=== PATIENT | male | born 2000 | race Caucasian/White ===

== ENCOUNTER 2020-12-05 15:10 | Emergency (ER) | payer OTHER, SELFPAY ==
[2020-12-05 15:47] VITALS: BP 135/77; PULSE 71; RESP 14; TEMP 37.2; O2SAT 97; BMI 23.7
--- NOTE | 2020-12-05 15:49 | DI.RAD.S_ITS ---
PROCEDURE: XR HAND RT MIN 3V INDICATIONS: hand injury TECHNIQUE: 3 views of the hand(s) acquired. COMPARISON: None. FINDINGS: Bones: No fractures or dislocations. Carpal bones are normally aligned. No suspicious bony lesions. Soft tissues: No suspicious soft tissue calcifications. IMPRESSION: No fracture. No osseous lesion. If symptoms and/or clinical suspicion for pathology persists, further assessment with repeat radiographs (7-10 days) or advanced imaging (e.g. CT, MRI or bone scan) should be considered. Dictated by: Bambi Downey MD, PhD on 12/05/2020 at 16:10 Approved by: Bambi Downey MD, PhD on 12/05/2020 at 16:11
--- NOTE | 2020-12-05 18:03 | ED.UPPEXIN ---
HPI - Extremity Injury (Upper) General Chief Complaint: Extremity Injury, Upper Stated Complaint: right hand fingers crushed in trailer hitch Time Seen by Provider: 12/05/20 17:59 Source: patient Mode of arrival: Ambulatory Limitations: no limitations History of Present Illness HPI narrative: 20-year-old male nonsmoker with noncontributory medical history presents with a chief complaint of injuries to the middle and ring finger on his right hand. He was working with a heavy trailer and the tongue squished these fingers in he now has some bruising and full but painful range of motion. He has no break in the skin and denies any numbness, tingling or weakness. He is otherwise well and free of complaint. MD complaint: injury to: right and finger Onset (ago): hour(s) Other Extremity Injury: Right: fingers Other injuries: none Handedness: left Place: work Severity: mild Relieving factors: rest Exacerbating factors: movement of extremity Context: crush Associated symptoms: denies other symptoms Related Data Allergies Allergy/AdvReac Type Severity Reaction Status Date / Time No Known Drug Allergies Allergy Verified 12/05/20 15:47 Review of Systems Review of Systems ROS Unobtainable: All systems reviewed & are unremarkable except as noted in HPI and below Constitutional Constitutional: Denies body ache(s), Denies chills, Denies fever(s) and Denies headache(s) Eyes Eyes: Denies blurry vision and Denies change in vision ENT Ears, Nose, Mouth, and Throat: Denies headache(s) Cardiovascular Cardiovascular: Denies chest pain and Denies dyspnea Respiratory Respiratory: Denies dyspnea Gastrointestinal Gastrointestinal: Denies abdominal pain, Denies nausea and Denies vomiting Musculoskeletal Musculoskeletal: Reports arthralgias and Reports joint swelling Integumentary/Breasts Skin/Breast: Reports unusual bruising Neurologic Neurologic: Denies headache(s) Patient History Social History Smoking Status: Unknown if ever smoked Smoking Status: Unknown if ever smoked alcohol intake frequency: holidays/special occasions only Substance Use Type: does not use Exam Narrative Exam Narrative: GEN: AOx3 and in mild distress EYES: Pupils are equal, round, and reactive to light and accommodation. Extraoccular muscles are intact bilaterally. There is no subconjunctival hemorrhage or exudate. CHEST: Lungs are clear to auscultation bilaterally and free of wheezes, rales, or rhonchi. Heart rate is regular rhythm, there are no murmurs, clicks, rubs, or gallops. There is no chest wall tenderness. ABD: Abdomen is soft and nontender. There is no guarding or rebound. Bowel sounds are normal in all 4 quadrants. There is no mass or organomegaly. EXT: Full but painful range of motion of all fingers on the right hand, able to make a fist, full strength, some contusion on the dorsal aspect of the middle finger with minimal ecchymosis. Sensation intact, cap refill less than 2 seconds. SKIN: Warm, pink, and dry. No erythema or rash Initial Vital Signs Initial Vital Signs: Vital Signs Temperature 98.9 F 12/05/20 15:47 Pulse Rate 71 12/05/20 15:47 Respiratory Rate 14 12/05/20 15:47 Blood Pressure 135/77 12/05/20 15:47 Pulse Oximetry 97 12/05/20 15:47 Course Orders Ordered: ED Orders 12/05/20 15:49 XR hand RT min 3V Stat Vital Signs Vital signs: Vital Signs - 8 hr 12/05/20 15:47 Temperature 98.9 F Pulse Rate 71 Respiratory Rate 14 Blood Pressure 135/77 Pulse Oximetry 97 MDM - Extremity Injury (Upper) Imaging Data Extremity x-ray #1: Radiologist's Impression: Kofi Ramsey 20 M [address] [id number] ReportSigned Patient: Kofi Ramsey [facility]#: [id number]: 2000Acct:[id number]/Sex: 20 / MDate of Service: 12/05/20Loc: EDAccession Number: [id number] Procedure: XR hand RT min 3V Ordering Provider: Zora Carrasco D.O. PROCEDURE: XR HAND RT MIN 3V INDICATIONS: hand injury TECHNIQUE: 3 views of the hand(s) acquired. COMPARISON: None. FINDINGS: Bones: No fractures or dislocations. Carpal bones are normally aligned. No suspicious bony lesions. Soft tissues: No suspicious soft tissue calcifications. IMPRESSION: No fracture. No osseous lesion. If symptoms and/or clinical suspicion for pathology persists, further assessment with repeat radiographs (7-10 days) or advanced imaging (e.g. CT, MRI or bone scan) should be considered. Dictated by: Bambi Downey MD, PhD on 12/05/2020 at 16:10 Approved by: Bambi Downey MD, PhD on 12/05/2020 at 16:11 Discharge Plan Departure Patient Disposition: Home Clinical Impression: Contusion of finger of right hand Qualifiers: Encounter type: initial encounter Finger: middle finger Damage to nail status: without damage Qualified Code(s): S60.031A - Contusion of right middle finger without damage to nail, initial encounter Instructions: DI for Contusion Activity Restrictions/Additional Instructions: *You have been diagnosed with [ contusion to fingers of right hand ] *What to do: *Take medications as directed: Tylenol and/or Motrin for pain *Follow up with your primary care provider in 2-3 days, call for an appointment. Let them know you were seen in the Emergency Department and that we ask that you be seen in follow up *Return to ER if you should have any new, worsening or concerning symptoms Referrals: [facility] [Outside]
== END 2020-12-05 18:29 | disposition home or self-care (01) ==
PROVIDERS: Emergency Provider Emergency Medicine
DX: S60.031A Contusion of right middle finger without damage to nail, initial encounter (principal); W23.0XXA Caught, crushed, jammed, or pinched between moving objects, initial encounter
CPT/HCPCS: 73130; 99281; 99283